=== PATIENT | male | born 1980 | race Caucasian/White ===

== ENCOUNTER 2019-03-03 22:00 | Emergency (ER) | payer OTHER ==
[~2019-03-03] VITALS: Ht 167.6 cm; Wt 72.4 kg
[~2019-03-03 22:00] MED LIST: NONE PER PT
[2019-03-03 22:07] VITALS: BP 132/76
[2019-03-03] MEDS ORDERED: PANT40TA5 PO (23:06)
--- NOTE | 2019-03-03 23:12 | NUR ---
irrigated left finger.
[2019-03-03] MEDS ORDERED: LIDOCAINE-MPF 1%, 5ML ONE (23:19)
[2019-03-03] MEDS ORDERED: DIPH,PERTUSS(ACELL),TET VAC/PF 0.5 ML IM-VACC ONE ×2 (23:20→23:30)
[2019-03-03] MEDS ORDERED: LIDOCAINE-MPF 1%, 5ML INFIL ONE (23:30)
[2019-03-03] MEDS ORDERED: BUPIVACAINE/PF 0.5% ONE (23:40)
== END 2019-03-04 00:13 | disposition home or self-care (01) ==
LOC: ED 22:39
DX: S61.210A Laceration without foreign body of right index finger without damage to nail, initial encounter (principal); S61.201A Unspecified open wound of left index finger without damage to nail, initial encounter; Z72.9 Problem related to lifestyle, unspecified; F17.210 Nicotine dependence, cigarettes, uncomplicated; W45.8XXA Other foreign body or object entering through skin, initial encounter; Y93.89 Activity, other specified; Y92.009 Unspecified place in unspecified non-institutional (private) residence as the place of occurrence of the external cause; Y99.8 Other external cause status
CPT/HCPCS: 12001; 64450; 90471; 90715; 99284